=== PATIENT | male | born 1970 ===

== ENCOUNTER 2024-11-17 05:15 | Day surgery (SDC) | payer OTHER ==
[2024-11-17] MEDS ORDERED: NEXIUM 24HR20 MG PO (08:59)
[2024-11-17] MEDS ORDERED: DIPHENHYDRAMINE HCL 50 MG/ML VIAL 1ML IV ONE (09:00)
[2024-11-17] MEDS ORDERED: MIDAZOLAM HCL/PF 5 MG/ML VIAL IV ONE (09:00)
== END 2024-11-17 10:15 | disposition home or self-care (01) ==
LOC: AMB-ENDOS 05:15
PROVIDERS: ATTEND Surgery
DX: K29.60 Other gastritis without bleeding (principal); R10.13 Epigastric pain; E66.09 Other obesity due to excess calories; K29.80 Duodenitis without bleeding